=== PATIENT | male | born 1965 | race Caucasian/White ===

== ENCOUNTER 2020-01-02 07:42 | Observation (INO) ==
--- NOTE | 2019-12-11 11:12 | Anesthesiology Consultation ---
Date of Service December 11, 2019 Assessment & Plan (1) Encounter for pre-operative examination: Cardiology 04/06/2019: Cardiovascular status stable, medical regimen appropriate, EKG unchanged, physical exam unremarkable, no changes needed at this time. Follow-up in 18 months. Chart Review Chart Review: Acceptable Risk for Surgery (pending pre op labs and cxr) and Patient seen in Pre Admission Testing Teaching & Discussion Instructed NPO after midnight before surgery, except medications with 15 cc of water. Medication instructions provided according to the PAT guidelines. History Surgery Operation Date: 01/02/20 08:50 Proposed Procedures p Left Total Knee Arthroplasty - Mitch Maier MD Height/Weight Height: 6 ft Weight: 139 kg Allergies Allergy/AdvReac Type Severity Reaction Status Date / Time No Known Allergies Allergy Unverified 12/11/19 10:47 Medications Home Medications Medication Instructions Recorded Confirmed Last Taken aspirin [Aspir-81] 81 mg PO QAM 12/11/19 12/11/19 Unknown atorvastatin 40 mg PO HS 12/11/19 12/11/19 Unknown indomethacin 50 mg PO TID PRN 12/11/19 12/11/19 Unknown meloxicam 15 mg PO DAILY PRN 12/11/19 12/11/19 Unknown metoprolol succinate 25 mg PO QAM 12/11/19 12/11/19 Unknown valsartan 160 mg PO QAM 12/11/19 12/11/19 Unknown Past Medical History Medical History CAD (coronary artery disease) s/p CO and 2 stents 2013 Gout Hyperlipidemia Hypertension Kidney stones hx of and passed on own Left knee DJD Morbid (severe) obesity due to excess calories Myocardial Infarction 2014 Osteoarthritis Exercise / Class Metabolic Activity II 4-5 Yardwork/Stairs/Walk up hill (Deneis CP or SOB with 1 FOS) Past Surgical History Surgical History History of cardiac cath 2014 2 stents [facility] Hx of arthroscopy of shoulder right Hx of decompressive lumbar laminectomy Past Anesthesia History No Hx of Anesthesia Complications and No Family Hx of Anesthesia Complications History of PONV No Hx of PONV and Hx of Motion Sickness Social History Smoking Status: Never smoker Do You Dip or Chew Tobacco: Yes (OCAS/ ADVISED) Hx Alcohol Use: Yes alcohol intake frequency: holidays/special occasions only Hx Substance Use: No substance use type: does not use Review of Systems Pt denies any recent chest pain, shortness of breath, palpitations, cough, fever or URI. Physical Exam Vital Signs Last Vital Signs Temp 36.3 C L 12/11/19 10:57 Pulse 82 12/11/19 10:57 Resp 18 12/11/19 10:57 BP 135/74 12/11/19 10:57 Pulse Ox 98 12/11/19 10:57 Constitutional + obese ENMT Mouth: + macroglossia; no dental restorations, no chipped teeth and no loose teeth Thyromental Distance: > or= 3.5 Finger Breadths (4) Mallampati Class: III Neck + thick neck; neck extension not limited Respiratory normal respiratory effort Auscultation: lungs clear to auscultation bilaterally Cardiovascular Rate/Rhythm: regular rate and regular rhythm Heart Sounds: no murmur Vessels: no carotid bruit Testing Electrocardiogram Date: 04/06/19 Findings: + NSR @ (79) Inf/post CO.
--- NOTE | 2019-12-11 11:14 | PAT Medication Instructions ---
Medication Instructions Date of Service December 11, 2019 Home Medications aspirin [Aspir-81] 81 mg PO QAM atorvastatin 40 mg PO HS indomethacin 50 mg PO TID PRN meloxicam 15 mg PO DAILY PRN metoprolol succinate 25 mg PO QAM valsartan 160 mg PO QAM ASK your surgeon for instructions indomethacin 50 mg PO TID PRN meloxicam 15 mg PO DAILY PRN DO NOT take the morning of surgery valsartan 160 mg PO QAM Take morning of surgery With a small sip of water, OTHERWISE NOTHING TO EAT OR DRINK AFTER MIDNIGHT: aspirin [Aspir-81] 81 mg PO QAM metoprolol succinate 25 mg PO QAM Take evening before surgery atorvastatin 40 mg PO HS Other Notes If you have any questions please call us at [phone] or [phone] or [phone] or [phone]
--- NOTE | 2019-12-11 11:54 | XRay Report ---
XR chest Pre-admission PA/Lat HISTORY: 54 years-old Male PAT preoperative exam. No acute chest complaints COMPARISON: Chest radiograph 08/25/2016 TECHNIQUE: PA and lateral views of the chest FINDINGS: Cardiac mediastinal and hilar silhouettes are within normal limits. No pneumothorax, pleural effusion , focal airspace consolidation or overt pulmonary edema. Bones of the chest appear grossly intact. IMPRESSION: No acute process. ACT 112: Negative or not required by law. The above report was generated using voice recognition software. It may contain grammatical, syntax o r spelling errors. Electronically signed by: Omid Reyes M.D. 12/11/2019 11:53 AM
[2019-12-11 12:36] LABS: Basophils # (auto) 0.02 K/uL (0-0.2); Basophils % (auto) 0.3 %; Eosinophils % (auto) 1.4 %; Hematocrit (blood only) 43.4 % (42-52); Hemoglobin 14.8 g/dL (14.0-18.0); Immature Granulocytes # (auto) 0.02 K/uL (0.00-0.02); Immature Granulocytes % (auto) 0.3 %; Lymphocytes # (auto) 1.27 K/uL (1.2-3.4); Lymphocytes % (auto) 17.3 %; Mean Corpuscular Hemoglobin 30.5 pg (25-34); Mean Corpuscular Hgb Conc 34.1 g/dL (32-36); Mean Corpuscular Volume 89.5 fL (80-100); Mean Platelet Volume 10.6 fL (7.4-10.4); Monocytes # (auto) 0.44 K/uL (0.11-0.59); Neutrophils # (auto) 5.48 K/uL (1.4-6.5); Neutrophils % (auto) 74.7 %; Platelet Count 225 K/uL (130-400); RDW Coefficient of Variation 13.2 % (11.5-14.5); Red Blood Count 4.85 M/uL (4.7-6.1); White Blood Count 7.33 K/uL (4.8-10.8)
[2019-12-11 12:46] LABS: Partial Thromboplastin Ratio 0.9; Partial Thromboplastin Time 25.4 Seconds (21.0-31.0); Prothrombin Time 10.2 Seconds (9.0-12.0)
[2019-12-11 13:02] LABS: BUN Creatinine Ratio 12.1 (10-20); Calcium 9.4 mg/dl (8.5-10.1); Creatinine Clr Calc Pharmacy 134.3 ml/min; Est GFR (Non-African American) 94.1; Potassium 4.5 mmol/L (3.5-5.1)
--- NOTE | 2019-12-29 19:21 | History and Physical Report ---
DATE OF ADMISSION: 01/02/2020 CHIEF COMPLAINT: Left knee pain and discomfort. HISTORY OF PRESENT ILLNESS: 53-year-old gentleman who is referred by my partner Dr. Licona for surgical treatment of his left knee. He has a long history of left knee pain and discomfort that has gradually gotten worse over time. He has been through extensive conservative treatment including various medicines as well as injections. The injections only helped him temporarily. Pain is mostly medial, but some global pain. It started to really limit his activities. He cannot walk any long distances. He has pain going up and down steps. He has been on a weight loss and diet program, but having difficulty due to his limited mobility. He now would like to have his knee fixed. PAST MEDICAL HISTORY: 1. Coronary artery disease status post NE in 2013 and cardiac stent placement x2 without any current symptoms. 2. History of back pain and back surgery. PAST SURGICAL HISTORY: 1. Lumbar diskectomy done in in [place]. 2. Right shoulder surgery [address] Dyer. ALLERGIES: None. CURRENT MEDICINES: 1. Aspirin 81 mg. 2. Atorvastatin 40 mg a day. 3. Indomethacin p.r.n. 4. Meloxicam 15 mg. 5. Metoprolol 25 mg. 6. Valsartan 160 mg a day. SOCIAL HISTORY: Significant for 54-year-old gentleman. 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 He does not smoke. FAMILY HISTORY: Noncontributory. REVIEW OF SYSTEMS: Significant for this cardiac event back in 2013. Currently has no chest pain and follows with field test engineer in [place]. He is on medical management. No history of DVT or PE. No known bleeding problems. PHYSICAL EXAMINATION: GENERAL: Shows a pleasant, fairly large middle-aged male. Looks to be in reasonably good health. HEENT: Benign. NECK: Supple, no lymphadenopathy. LUNGS: Clear to auscultation. HEART: Regular rate and rhythm. ABDOMEN: Soft, nontender, nondistended. EXTREMITIES: Grossly neurovascularly intact except as follows: Examination of the left knee reveals the patient ambulates independently. He has varus alignment to his knee. He is tender over the medial joint line. Range of motion about 5-10 degrees short of full extension to 125 degrees of flexion. There is no instability. Small knee effusion. No pain with hip motion. X-RAYS: X-rays of the left knee were reviewed. Shows advanced medial compartment DJD. He has near complete loss of his medial joint space. He has osteophytes off the medial femoral condyle and medial tibial plateau. He does have some lateral compartment disease as well, but not as severe. 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 He has failed conservative treatment. It is really limiting his activities and he would like to have his knee fixed. PLAN: We will take him to the operating room and do a left total knee replacement. The risks and benefits of this procedure were explained to the patient including but not limited to DVT, PE, , infection, neurological injury, vascular injury, bleeding problem, pain, limited range of motion, stiffness, failure to relieve symptoms, incomplete relief of symptoms, need for further surgery in future, fracture, leg length inequality, nerve palsy, persistent pain, need for revision surgery. The patient understands and desires to proceed. Informed consent was obtained. We did talk to him about taking the metoprolol on the morning of surgery and hold all NSAIDs 10 days preop. He is planning to be discharged to home using [facility] home health program.
[~2020-01-02 07:42] MED LIST: ACETAMINOPHEN 500 MG TAB PO SCH; BUPIVACAINE 0.5 % 5 MG/1 ML PF 10ML VIAL ONE; BUPIVACAINE LIPOSOME/PF 266 MG, BUPIVACAINE/EPINEPHRINE 50 ML, SODIUM CHLORIDE 0.9% 30 ... INFIL SCH; CEFAZOLIN 3000MG 72.5 ML IV SCH; FAMOTIDINE 20 MG TAB PO SCH; GABAPENTIN 900 MG DOSE PO SCH; LR 500ML BOLUS, THEN 15ML/HR IV SCH; LR 60ML/HR IV SCH; METOCLOPRAMIDE HCL 10 MG TABLET PO SCH; SCOPOLAMINE 1.5 MG TDSY TD SCH; TRANEXAMIC ACID / 0.7% NACL 1,000 MG/100 ML BAG IV SCH
--- NOTE | 2020-01-02 08:52 | History & Physical Bridge Note ---
Date of Service January 02, 2020 History & Physical Bridge Note I have examined the patient, reviewed the History & Physical and in the interval since the performance of the History & Physical I have noted the following changes of clinical significance: no changes noted
[2020-01-02] MEDS ORDERED: fentaNYL citrate 100 MCG/2 ML VIAL ONE (09:23)
[2020-01-02] MEDS ORDERED: MIDAZOLAM HCL 1 MG/ML 2ML VIAL ONE ×2 (09:24→10:32)
[2020-01-02] MEDS ORDERED: ATROPINE SULFATE 0.1 MG/ML 10ML SYR IV PRN (09:56)
[2020-01-02] MEDS ORDERED: fentaNYL citrate 100 MCG/2 ML VIAL IV PRN (09:56)
[2020-01-02] MEDS ORDERED: ePHEDrine sulfate 50 MG/ML AMP IV PRN (09:56)
[2020-01-02] MEDS ORDERED: ONDANSETRON INJ 2 MG/ML 2 ML VIAL IV PRN ×2 (09:56→14:08)
[2020-01-02] MEDS ORDERED: PROPOFOL IV EMULSION 10 MG/ML 20 ML VIAL IV ONE ×4 (10:05→12:40)
[2020-01-02] MEDS ORDERED: BUPIVACAINE LIPOSOME 1.3% 266 MG/20 ML VIAL ONE (10:49)
[2020-01-02] MEDS ORDERED: BUPIVACAINE/EPINEPHRINE 0.25% 1:200,000 30 ML VIAL ONE (10:49)
[2020-01-02] MEDS ORDERED: BACITRACIN INJ 50,000 UNIT VIAL ONE (10:49)
[2020-01-02] MEDS ORDERED: SODIUM CHLORIDE 0.9% PF 50 ML VIAL ONE (10:49)
[2020-01-02] MEDS ORDERED: ONDANSETRON INJ 2 MG/ML 2 ML VIAL ONE (11:22)
[2020-01-02] MEDS ORDERED: LIDOCAINE HCL 2% 2 ML VIAL/AMP(20MG/ML) INFIL ONE (11:24)
[2020-01-02] MEDS ORDERED: PHENYLEPHRINE 100MCG/ML 5ML SYR ONE (11:38)
[2020-01-02] MEDS ORDERED: ePHEDrine sulfate 50 MG/ML SYR ONE (11:38)
[2020-01-02] MEDS ORDERED: GLYCOPYRROLATE 0.2 MG/ML VIAL ONE ×2 (11:45→12:40)
--- NOTE | 2020-01-02 13:06 | Post Operative Brief Note ---
PG Immediate Post Op with CF Date of Surgery January 02, 2020 Pre & Post Diagnosis Operation Date: 01/02/20 10:40 Pre-Op Diagnosis: Left Knee Advanced Degenerative Joint Disease Post-Op Diagnosis: Left Knee Advanced Degenerative Joint Disease I identified the patient and participated in the time-out.: Yes Procedure Operation Date: 01/02/20 10:40 Actual Procedures p Left Total Knee Arthroplasty(Left) - Mitch Maier MD Surgeon Mitch Maier MD Wastewater Supervisor Lester, PAC Estimated Blood Loss 100 Findings Consistent with Post-Op Diagnosis Fluids 2000 cc Specimens Specimen Description: A. Left Knee Bone and Tissue Drains Barrera Catheter (A 16 Thai barrera catheter was inserted by MARGARITA Grullon, without difficulty, clear yellow urine obtained, output to be monitored by Anesthesia.) Anesthesia Type Spinal MAC Complications none Disposition Accompanied Patient To Recovery: No Disposition: Recovery Room
--- NOTE | 2020-01-02 13:18 | Operative Report ---
Post Operative Report Pre & Post Diagnosis Operation Date: 01/02/20 10:40 Pre-Op Diagnosis: Left Knee Advanced Degenerative Joint Disease Post-Op Diagnosis: Left Knee Advanced Degenerative Joint Disease I identified the patient and participated in the time-out.: Yes Procedure Operation Date: 01/02/20 10:40 Actual Procedures p Left Total Knee Arthroplasty(Left) - Mitch Maier MD Surgeon Mitch Maier MD [employer] Exchange Administrator Lester, PAC Estimated Blood Loss 100 Findings Consistent with Post-Op Diagnosis Operative findings revealed advanced left knee DJD primarily involving the medial and patellofemoral compartments. He had grade 4 changes in both areas particular the trochlea and the patellofemoral joint in both the medial femoral condyle medial tibial plateau on the medial side the joint. He had a varus deformity to his knee. Moderate knee joint effusion. Did a pretty extensive prepatellar bursitis. Fluids 2000 cc. Specimens Left knee sent for pathology. Drains None. Anesthesia Type Spinal MAC Complications none Disposition Accompanied Patient To Recovery: No Disposition: Recovery Room Indications Patient is a 54-year-old gentleman is had a long history of left knee pain discomfort. She been through extensive conservative treatment provided by my partner over the years. This became less successful. X-rays show advanced medial compartment arthritis. Failed all conservative care and elected proceed with total knee arthroplasty. Description of Procedure Operative implants consist of: 1. Biomet Vanguard size 72.5 left posterior by femoral component. 2. Biomet size 79 tibial tray. 3. 16 mm posterior stabilized polyethylene insert. 4. 31 x 8 all poly-patella. Patient was taken to the operating room identified and placed on the operating room table in supine position. All contact areas were properly padded. IV antibiotics were 5 by anesthesia team. Spinal anesthetic and abductor canal block had been provided in the holding area. Julian catheter was placed in sterile fashion to the left atrium was then placed in the left lower extremities and prepped and draped in the usual sterile fashion. Left leg was elevated and exsanguinated with use of an Esmarch and turns placed at 300 mmHg. An anterior posterior left knee was then performed to longitudinal incision centered over the patella. Sharp dissection was gone through subcutaneous tissue down below the extensor mechanism. A medial parapatellar arthrotomy incision was made. Some subperiosteal dissection was carried out medially. The fat pad was resected from each patella tendon. The lateral patellofemoral ligament was released. Patella was subluxated laterally and the knee was flexed. The osteophytes were taken off the distal femur. The ACL and PCL were then released and the distal femur the tibia subluxated anteriorly. T he external tibial alignment jig was then placed in the interface the tibia and adjusted 14 mm medially. Proximal tibial cut was made to move about 3 to 4 mm of bone from the medial side. Did take a little extra bone as he did not have a lot of bone wear. M the proximal tibial cut was made. The tibia was then sized to a size 79. I tried to maximize coverage due to his very large size and weig ht. Wheezes 79 tibia. Attention drawn the femur. Nipride the disc femur then with a sharp drop with intramedullary canal was suction. A left 6 degree valgus cutting guide was placed. This femoral cutting block was pinned in place. Distal femoral cut was made to take an additional 3 mm of bone off distal femur. The femur was then sized to a size 72.5. We downsized this just slightly. The AP cutting block was pinned parallel to the epicondylar axis which was 5 degrees of external rotation with anterior cut, anterior chamfer, posterior cut, posterior chamfer cuts were made. Box cutting guide was placed in the just slightly lateral and the box cut was made. The knee was flexed. The remnants of the medial lateral menisci were excised. The osteophytes taken off the posterior aspect the femur. Trial femoral component was placed. The tibial tray was pinned in maximum external rotation and the drill and stem punch we used to create defect in the proximal tibia for the tibial tray. The knee was then trialed the 16mm insert fit most appropriately. Attention drawn the patella. Patella was cleaned of all soft tissue. Patella thickness measured 23 mm in thickness was cut down to 13. Was sized to a size 31 patella. Locals were drilled for 31 patella. Lateral osteophytes removed. Patella button was placed. Knee was taken through range of motion patella tracked nicely with no thumbs test. Attention drawn to place the permanent components. All trial components removed. Bone plug was placed in the distal femur limit blood loss put a double batch Palacos G cement was mixed. BiomHTPguard size 72.5 left posterior by femoral component, size 79 tibial tray, a 16 mm posterior stabilized femoral component/polyethylene, and a 31 x 8 all poly-patella then cement in place. Knees brought in full extension total cement hardened. Final cement check was then performed. The pericapsular tissues were injected with total 100 cc of combination of 20 cc of Exparel, 30 cc of normal saline, 50 cc of quarter percent Marcaine with epinephrine. Taste patient did receive 1 g of tranexamic acid. The tourniquet was then let down for final turn time 65 minutes. Hemostasis assured use electrocautery. Extensor mechanism closed with combination 1 PDS suture #1 Vicryl suture in [id number] fashion to the extensor mechanism checked found to be intact the subtenons tissue then closed with 2 Dexon suture in a buried interrupted fashion skin was closed skin killian. Legs then cleaned dried a sterile dressing composed of Xeroform, 4 x 4's, sterile cast padding, Scooter bandage were applied. Patient then transferred to the recovery room in stable condition. Patient tolerated procedure well no complications. I attest to the content of the Intraoperative Record and any orders documented therein. Any exceptions are noted below.
--- NOTE | 2020-01-02 13:28 | XRay Report ---
LEFT KNEE 2 VIEWS History: Left total knee arthroplasty. Degenerative arthritis. Postop. FINDINGS: The patient is status post a left total knee arthroplasty. The hardware is intact. No fract ure or dislocation. Skin killian are in place. IMPRESSION: Left total knee arthroplasty. No evidence for hardware complication. ACT 112: Negative or not required by law. Electronically signed by: Memo Mcelroy M.D. 01/02/2020 1:27 PM
--- NOTE | 2020-01-02 13:41 | Anesthesiology Progress Note ---
Date of Service January 02, 2020 Anesthesia Post Procedure Vital Signs Vital Signs: Temp Pulse Pulse Resp BP Pulse Ox 01/02/20 13:30 71 17 112/67 100 01/02/20 13:20 72 22 119/60 100 01/02/20 13:14 97.2 F L 74 12 112/56 L 100 01/02/20 08:09 98.8 F 79 18 129/73 95 Transfer of Care Handoff Completed per policy Notes Mental Status: alert / awake / arousable and participated in evaluation Patient Amnestic to Procedure: Yes Nausea / Vomiting: adequately controlled Pain: adequately controlled Airway Patency, RR, SpO2: stable & adequate BP & HR: stable & adequate Hydration State: stable & adequate Neuraxial Anesthesia: was administered and sensory block is resolving Anesthetic Complications: no major complications apparent and Pt Satisfied with anesthetic care
[2020-01-02] MEDS ORDERED: bisacodyL 10 MG SUPP PR PRN (14:08)
[2020-01-02] MEDS ORDERED: ALUMINUM/MAGNESIUM SUSP 30 ML UDC PO PRN (14:08)
[2020-01-02] MEDS ORDERED: NALOXONE HCL 0.4 MG/1 ML VIAL/CARP IV PRN (14:08)
[2020-01-02] MEDS ORDERED: MAGNESIUM HYDROXIDE SUSP 30 ML UDC PO PRN (14:08)
[2020-01-02] MEDS ORDERED: METOCLOPRAMIDE HCL INJ 5 MG/ML 2 ML VIAL IV PRN (14:08)
[2020-01-02] MEDS ORDERED: TAMSULOSIN HCL 0.4 MG CAP PO PRN (14:08)
[2020-01-02] MEDS ORDERED: HYDROmorphone INJ 0.5 MG/0.5 ML SYR IV PRN (14:08)
[2020-01-02] MEDS: ACETAMINOPHEN 500 MG TAB PO SCH ×2 (14:39→21:25)
[2020-01-02] MEDS: KETOROLAC 30 MG/ML VIAL IV SCH ×2 (14:39→21:24)
[2020-01-02] MEDS: CHECK SCOPOLAMINE PATCH PLACEMENT SCH ×2 (14:44→23:48)
[2020-01-02] MEDS: SODIUM CHLORIDE 0.9% 1000ML 1,000 ML IV SCH ×2 (18:11→23:47)
[2020-01-02] MEDS: FERROUS GLUCONATE 324 MG TAB PO SCH (18:11)
[2020-01-02] MEDS: CEFAZOLIN 2000MG 2,000 MG/15 ML SYR IV SCH (18:11)
[2020-01-02] MEDS: ASCORBIC ACID 500 MG TAB PO SCH (18:11)
--- NOTE | 2020-01-02 18:15 | Progress Note ---
DATE: 01/02/2020 SUBJECTIVE: A 54-year-old gentleman postop from a left knee replacement. He is doing well. Really not having any pain yet. He is pretty groggy and just tired. No chest pain or shortness of breath. Not feeling dizzy or lightheaded. OBJECTIVE: VITAL SIGNS: Temperature 36.4. Vital signs stable. GENERAL: Shows a pleasant, middle-aged male. I had to wake him when I went in the room. He was pretty tired and it took quite a bit to arouse him. He became awake, alert and oriented. LUNGS: Clear to auscultation. HEART: Has a regular rate and rhythm. ABDOMEN: Soft, nontender, nondistended. EXTREMITIES: Grossly neurovascularly intact except as follows: Examination of the left leg reveals the leg to be well aligned. Dressing is clean, dry, and intact. He can dorsiflex and plantarflex his foot appropriately. He is neurologically intact. He has got brisk refill. X-RAYS: X-rays of the left knee from recovery room were reviewed. It shows a cemented posterior stabilized total knee arthroplasty. Components looked to be in good position. No signs of problems. ASSESSMENT: A 54-year-old very large gentleman postoperative from a left knee replacement, doing well. Pain is controlled. He is neurologically intact. PLAN: 1. DVT prophylaxis including thigh-high TEDs, SCDs, and aspirin twice a day. 2. PT/OT. Weight bear as tolerated. Left total knee protocol. 3. Pain control, doing well with current pain regimen. 4. IV antibiotics x24 hours. 5. Disposition: Plan to discharge to home with some home health once adequately recovered and medically stable.
[2020-01-02] MEDS ORDERED: TRANEXAMIC ACID / 0.7% NACL 1,000 MG/100 ML BAG IV SCH (19:09)
[2020-01-02] MEDS: DOCUSATE SODIUM 100 MG CAP PO SCH (21:25)
[2020-01-02] MEDS: ASPIRIN 81 MG ECTAB PO SCH (21:25)
[2020-01-02] MEDS: TAPENTADOL HCL ER 50 MG TABCR PO SCH (21:25)
[2020-01-02] MEDS: SENNA 8.6 MG TAB PO SCH (21:25)
[2020-01-02] MEDS: ATORVASTATIN 40 MG TAB PO SCH (21:25)
[2020-01-03] MEDS: KETOROLAC 30 MG/ML VIAL IV SCH ×4 (02:48→20:07)
[2020-01-03] MEDS: CEFAZOLIN 2000MG 2,000 MG/15 ML SYR IV SCH (02:49)
[2020-01-03 05:29] LABS: Hematocrit (blood only) 31.9 % (42-52); Hemoglobin 10.8 g/dL (14.0-18.0); Mean Corpuscular Hemoglobin 30.5 pg (25-34); Mean Corpuscular Hgb Conc 33.9 g/dL (32-36); Mean Corpuscular Volume 90.1 fL (80-100); Mean Platelet Volume 9.8 fL (7.4-10.4); Platelet Count 240 K/uL (130-400); RDW Coefficient of Variation 12.6 % (11.5-14.5); RDW Standard Deviation 41.6 fL (36.4-46.3); Red Blood Count 3.54 M/uL (4.7-6.1); White Blood Count 9.06 K/uL (4.8-10.8)
[2020-01-03] MEDS: ACETAMINOPHEN 500 MG TAB PO SCH ×3 (05:38→21:19)
[2020-01-03 05:53] LABS: BUN Creatinine Ratio 12.2 (10-20); Calcium 8.1 mg/dl (8.5-10.1); Creatinine Clr Calc Pharmacy 116.7 ml/min; Est GFR (African American) 93.1; Est GFR (Non-African American) 80.3; Potassium 4.3 mmol/L (3.5-5.1)
[2020-01-03] MEDS: SODIUM CHLORIDE 0.9% 1000ML 1,000 ML IV SCH (05:59)
[2020-01-03] MEDS: MULTIVITAMIN TAB PO SCH (08:49)
[2020-01-03] MEDS: FERROUS GLUCONATE 324 MG TAB PO SCH ×2 (08:50→18:32)
[2020-01-03] MEDS: ASCORBIC ACID 500 MG TAB PO SCH ×2 (08:51→18:33)
[2020-01-03] MEDS: DOCUSATE SODIUM 100 MG CAP PO SCH ×2 (08:51→20:07)
[2020-01-03] MEDS: ASPIRIN 81 MG ECTAB PO SCH ×2 (08:52→20:07)
[2020-01-03] MEDS: VALSARTAN 80 MG TAB PO SCH (08:52)
[2020-01-03] MEDS: TAPENTADOL HCL ER 50 MG TABCR PO SCH ×2 (08:52→20:06)
[2020-01-03] MEDS: METOPROLOL SUCC 25MG EXT REL TAB PO SCH (08:52)
--- NOTE | 2020-01-03 12:21 | Progress Note ---
DATE: 01/03/2020 SUBJECTIVE: A 54-year-old gentleman postop day #1 from left knee replacement. He is doing pretty well. Having some pain, but controlled. No chest pain or shortness of breath. Not feeling dizzy or lightheaded. OBJECTIVE: VITAL SIGNS: Temperature 36.6. Vital signs stable. GENERAL: Shows a pleasant, middle-aged male. He is sitting up in bed, looks pretty comfortable. EXTREMITIES: Examination of the left leg reveals the dressing to be clean, dry and intact. No drainage. He can dorsiflex and plantarflex his foot appropriately. He is neurologically intact. LABORATORY DATA: Hemoglobin is 10.8. Hematocrit 31.9. Electrolytes are stable. ASSESSMENT: A 54-year-old gentleman postoperative day #1 from left knee replacement, doing pretty well. His pain has been pretty well controlled. He is neurologically intact. PLAN: 1. DVT prophylaxis including thigh-high TEDs, SCDs, and aspirin twice a day. 2. PT/OT. Weight bear as tolerated. Left total knee protocol. 3. Pain control, doing okay with current pain regimen. 4. Disposition: He is planning to be discharged home likely with some home health once adequately recovered and medically stable.
[2020-01-03] MEDS: OXYCODONE HCL IR 5 MG TAB (IMMEDIATE RELEASE) PO PRN (15:06)
[2020-01-03] MEDS: SENNA 8.6 MG TAB PO SCH (20:07)
[2020-01-03] MEDS: ATORVASTATIN 40 MG TAB PO SCH (20:07)
[2020-01-04] MEDS: KETOROLAC 30 MG/ML VIAL IV SCH ×2 (03:11→08:11)
[2020-01-04] MEDS: ACETAMINOPHEN 500 MG TAB PO SCH (05:05)
--- NOTE | 2020-01-04 07:54 | Progress Note ---
DATE: 01/04/2020 SUBJECTIVE: A 54-year-old gentleman postop day #2 from left knee replacement. He is doing pretty well. Pain is controlled. Therapy went reasonably well. No chest pain or shortness of breath. Not feeling dizzy or lightheaded. OBJECTIVE: VITAL SIGNS: Temperature 37.0. Vital signs stable. GENERAL: Shows a pleasant, middle-aged male. He is walking around his room with a walker, doing pretty well this morning. EXTREMITIES: Examination of the left leg reveals incision to be clean, dry and intact. Some moderate swelling. Calf is soft and supple. He is neurologically intact. ASSESSMENT: A 54-year-old gentleman postop day #2 from left knee replacement, doing pretty well. Pain is controlled. He is neurologically intact. PLAN: 1. DVT prophylaxis including thigh-high TEDs, SCDs, and aspirin twice a day. 2. PT/OT. Weight bear as tolerated. Left total knee protocol. 3. Pain control, doing pretty well with current pain regimen. 4. Disposition: Plan to discharge to home with some home health likely later today.
[2020-01-04] MEDS: DOCUSATE SODIUM 100 MG CAP PO SCH (08:08)
[2020-01-04] MEDS: FERROUS GLUCONATE 324 MG TAB PO SCH (08:09)
[2020-01-04] MEDS: VALSARTAN 80 MG TAB PO SCH (08:10)
[2020-01-04] MEDS: ASPIRIN 81 MG ECTAB PO SCH (08:10)
[2020-01-04] MEDS: METOPROLOL SUCC 25MG EXT REL TAB PO SCH (08:10)
[2020-01-04] MEDS: ASCORBIC ACID 500 MG TAB PO SCH (08:10)
[2020-01-04] MEDS: TAPENTADOL HCL ER 50 MG TABCR PO SCH (08:10)
[2020-01-04] MEDS: MULTIVITAMIN TAB PO SCH (08:10)
[2020-01-04] MEDS: OXYCODONE HCL IR 5 MG TAB (IMMEDIATE RELEASE) PO PRN (10:31)
--- NOTE | 2020-01-08 16:30 | Discharge Summary ---
ADMITTING PHYSICIAN AND SURGEON: Dr. Mitch Maier. ADMITTING DIAGNOSIS: Left knee degenerative joint disease. SURGERY PERFORMED: Left total knee arthroplasty. SECONDARY DIAGNOSES: Coronary artery disease, back pain, sciatica. CONSULTS: None obtained. HISTORY AND PHYSICAL EXAMINATION: Well documented in the patient's chart. HOSPITAL COURSE: The patient was admitted on 01/02/2020 underwent total knee arthroplasty, tolerated the procedure well. There were no complications. He was transferred to the PACU postoperatively and later to the orthopedic floor for further care. He was given Ancef for antibiotic prophylaxis, WING stockings, SCDs and aspirin for DVT prophylaxis. Hemoglobin, hematocrit and vital signs were monitored during his hospital stay and remained stable, did not require any blood transfusions. There were no complications. By postoperative day 2, he was tolerating a regular diet, pain was controlled with oral pain medicine. He was participating in physical therapy. Postop day 2, he was discharged home, set up with home health services, given printed discharge instructions as well as new prescriptions for extra strength Tylenol, aspirin and oxycodone. Continue his home medications, continue physical therapy, weightbearing as tolerated, WING stockings. Follow up approximately 2 weeks postop or sooner if there are any problems or concerns.
== END 2020-01-04 10:45 | disposition home health service (06) | DRG 470 ==
LOC: ASU 07:42 → 3E 13:10 → INTOOBSV 13:10